=== PATIENT | male | born 1985 | race Caucasian/White ===

== ENCOUNTER 2021-09-13 02:54 | Outpatient (CLI) | payer OTHER, SELFPAY ==
[2021-09-13] MEDS: Inhaler, Assist Device 1 EACH MC (13:28)
[2021-09-13] MEDS: Albuterol HFA 18 GM 200 PUFF INH IH (13:29)
--- NOTE | 2021-11-14 08:55 | W.PFT ---
Date of service: 09/13/21 Time of Service: 08:55 Pulmonary Function Test Result Indications: Disability Interpretation Spirometry: There is no airflow limitation. There is no significant bronchodilator response. Impression Normal spirometry Clinical Correlation therefore is recommended.
== END 2021-09-13 02:55 | disposition home or self-care (01) ==
PROVIDERS: Visit Provider Chiropractor
DX: Z02.71 Encounter for disability determination (principal)
CPT/HCPCS: 94060